=== PATIENT | male | born 1940 | race Caucasian/White ===

== ENCOUNTER 2016-09-12 10:48 | Emergency (ER) | payer MEDICARE, BC ==
--- NOTE | ~2016-09-12 | CR211 ---
[facility] A Service of [facility] RADIOLOGY TEXT RESULTS PATIENT: JUAN DIEGO MARMOLEJO LOCATION: SED : 39 UNIT #: [id number] AGE: [address]: Sebastien Monahan MD SEX: M ORDER DR: [id number] [place] [id number] E MR#: [id number] Acc #: [id number] NAME: JUAN DIEGO MARMOLEJO : 1940 SEX: M STUDY DATE/TIME: 09/12/2016 10:57 UNIT: SED ROOM: STUDY DESCRIPTION: CR Ribs Uni 2 View W PA Ch Rt Attending Physician: Sebastien Monahan M.D. Ordering Physician: Sebastien Monahan M.D. Primary Care Physician: Mirza Ellis D.O. MEDICAL IMAGING REPORT This report is preliminary unless electronic signature is present. EXAM Chest with right rib series 09/12/2016 at 10:57 hours HISTORY Patient fell today, right rib pain. COMPARISON Chest x-ray 04/01/2012 FINDINGS The upright view of the chest demonstrates low lung volumes. There is a right central venous port catheter with tip at the junction of SVC and right atrium. There is mild atelectasis at the right base unchanged. There is no pleural effusion or pneumothorax. AP and oblique views of the right ribs demonstrate mild bowing deformity of the anterior sixth rib which could be related to incomplete fracture or old healed fracture. IMPRESSION 1. Stable right central venous port catheter. 2. Mild atelectasis at the right base. There is no pleural effusion or pneumothorax. 3. Rib detail films demonstrate mild bowing deformity of the far anterior right sixth rib which could be related to old healed fracture or perhaps nondisplaced acute fracture. There is no pneumothorax. Dictated by... Kayleen Ordonez M.D. [facility] A Service of [facility] RADIOLOGY TEXT RESULTS PATIENT: JUAN DIEGO MARMOLEJO LOCATION: SED : 39 UNIT #: [id number] AGE: [address]: Sebastien Monahan MD SEX: M ORDER DR: THIS IS AN ELECTRONICALLY VERIFIED REPORT Kayleen Ordonez M.D. at 09/12/2016 2:30 PM GABY/johnathon TD: 09/12/2016 12:39 JOB #: [id number] MEDICAL IMAGING REPORT Page 1 of 1
--- NOTE | ~2016-09-12 | CT71 ---
[facility] A Service of [facility] RADIOLOGY TEXT RESULTS PATIENT: JUAN DIEGO MARMOLEJO LOCATION: SED : 39 UNIT #: [id number] AGE: [address]: Sebastien Monahan MD SEX: M ORDER DR: [id number] [place] [id number] E MR#: [id number] Acc #: [id number] NAME: JUAN DIEGO MARMOLEJO. : 1940 SEX: M STUDY DATE/TIME: 09/12/2016 10:54 UNIT: SED ROOM: STUDY DESCRIPTION: CT Head Wo Contrast Attending Physician: Sebastien Monahan M.D. Ordering Physician: Sebastien Monahan M.D. Primary Care Physician: Mirza Ellis D.O. MEDICAL IMAGING REPORT This report is preliminary unless electronic signature is present. EXAM CT of the head without contrast INDICATION Fell backwards and hit head on garage floor. This occurred September 07, 2016. Patient now has a large, painful hematoma along the right-sided posterior head. This patient is on blood thinners. TECHNIQUE Axial CT images were obtained from the vertex of the skull through the skull base. No intravenous contrast was administered. This CT examination was performed with one or more of the following radiation dose reduction techniques: automatic exposure control, adjustment of mA and/or kV according to patient size, and iterative reconstruction. FINDINGS This patient has a large right parieto-occipital soft tissue hematoma measuring up to 5.6 x 2.2 cm. No underlying calvarial fracture is identified and I do not see any intracranial hemorrhage. There is diffuse cerebral atrophy with compensatory ventricular dilatation which is keeping with the age of 76. There is no midline shift or mass effect. I do not see any definite focal areas of decreased attenuation. Visualized paranasal sinuses and mastoid air cells appear clear. IMPRESSION Patient has a large right parieto-occipital soft tissue hematoma measuring up 5.6 x 2.2 cm without underlying calvarial fracture. No acute intracranial hemorrhage is seen. Dictated by... [facility] A Service of [facility] RADIOLOGY TEXT RESULTS PATIENT: JUAN DIEGO MARMOLEJO [id number] : 38 UNIT #: [id number] AGE: [address]: Sebastien Monahan MD SEX: M ORDER DR: Alivia Barajas M.D. THIS IS AN ELECTRONICALLY VERIFIED REPORT Alivia Barajas M.D. at 09/12/2016 6:55 PM AFF/emory TD: 09/12/2016 13:07 JOB #: [id number] MEDICAL IMAGING REPORT Page 1 of 1
--- NOTE | ~2016-09-12 | CR219 ---
[facility] A Service of [facility] & [facility] RADIOLOGY TEXT RESULTS PATIENT: JUAN DIEGO MARMOLEJO LOCATION: SED : 39 UNIT #: [id number] AGE: [address]: Sebastien Monahan MD SEX: M ORDER DR: [id number] [place] [id number] E MR#: [id number] Acc #: [id number] NAME: JUAN DIEGO MARMOLEJO. : 1940 SEX: M STUDY DATE/TIME: 09/12/2016 10:57 UNIT: SED ROOM: STUDY DESCRIPTION: CR Sacrum and Coccyx Min 2 Vie Attending Physician: Sebastien Monahan M.D. Ordering Physician: Sebastien Monahan M.D. Primary Care Physician: Mirza Ellis D.O. MEDICAL IMAGING REPORT This report is preliminary unless electronic signature is present. EXAM Sacrum and coccyx 2 views 09/12/2016 1057 hours HISTORY Patient fell today with sacral pain. COMPARISON None. FINDINGS 2 AP views of the sacrum and coccyx and a lateral view were performed. There is mild spurring at the sacroiliac joints. There is no sacral or coccygeal fracture. Mild sclerotic degenerative change at the pubic symphysis. IMPRESSION No fracture of the sacrum or coccyx. Degenerative changes are present. Dictated by... Kayleen Ordonez M.D. THIS IS AN ELECTRONICALLY VERIFIED REPORT Kayleen Ordonez M.D. at 09/12/2016 2:30 PM GABY/emory TD: 09/12/2016 12:50 JOB #: [id number] MEDICAL IMAGING REPORT Page 1 of 1
--- NOTE | ~2016-09-12 | CR206 ---
[facility] A Service of [facility] & [facility] RADIOLOGY TEXT RESULTS PATIENT: JUAN DIEGO MARMOLEJO LOCATION: SED : 39 UNIT #: [id number] AGE: [address]: Sebastien Monahan MD SEX: M ORDER DR: [id number] [place] [id number] E MR#: [id number] Acc #: [id number] NAME: JUAN DIEGO MARMOLEJO : 1940 SEX: M STUDY DATE/TIME: 09/12/2016 UNIT: SED ROOM: STUDY DESCRIPTION: CR Pelvis 1 or 2 Views Attending Physician: Sebastien Monahan M.D. Ordering Physician: Sebastien Monahan M.D. Primary Care Physician: Mirza Ellis D.O. MEDICAL IMAGING REPORT This report is preliminary unless electronic signature is present. EXAM Pelvis one-view 09/12/2016 at 10:57 hours HISTORY Patient fell today, pelvic and hip pain. COMPARISON None. FINDINGS Single view of the pelvis demonstrates no fracture or dislocation. There is mild degenerative change at the hip joints and sacroiliac joints. IMPRESSION No pelvic or hip fracture seen. Dictated by... Kayleen Ordonez M.D. THIS IS AN ELECTRONICALLY VERIFIED REPORT Kayleen Ordonez M.D. at 09/12/2016 2:30 PM GABY/johnathon TD: 09/12/2016 12:38 JOB #: [id number] MEDICAL IMAGING REPORT Page 1 of 1
[~2016-09-12 10:48] MED LIST: AMBIEN PO; ASPIRIN EC81 M1 PO; ASPIRIN PO; ASPIRIN81 M1 PO; CENTRUM PO; CENTRUM SILVER PO; FENOFIBRATE145 M1 PO; FEOSOL PO; FUROSEMIDE40 MG PO; GLUCOPHAGE500 M1 PO; GLUCOPHAGE500 MG PO; IMDUR PO; ISOSORBIDE DINI30 MG PO; K-DUR20 ME1 PO; KCL PO; KLOR-CON PO; LANOXIN PO; LASIX PO; LIPITOR PO; LIPITOR20 MG PO; LOVAZA1 G PO; MAGNESIUM400 MG PO; METOPROLOL SUCC50 MG PO; MULTI VITAMIN1 EACH PO; NITROGLYCERIN0.4 MG SL; PLAVIX PO; STOOL SOFTENER240 MG; TIKOSYN250 MCG PO; TOPROL XL PO; TOPROL XL50 MG PO; TRICOR145 MG PO; XARELTO15 MG PO
[2016-09-12 10:54] LABS: BASOPHIL% 1.3 % (0-2.5); EOSINOPHIL# 0.1 X10e3 (0-0.7); EOSINOPHIL% 3.2 % (0.0-7.0); HEMATOCRIT 34.8 % (38.0-50.0); HEMOGLOBIN 11.6 gm/dL (13.0-16.0); LYMPHOCYTE# 0.3 X10e3 (1.0-3.5); LYMPHOCYTE% 9.9 % (17.0-45.0); MEAN CELL VOLUME 102.2 FL (83-96); MEAN CORPUSCULAR HEMOGLOBIN 34.2 PG (28-34); MEAN CORPUSCULAR HGB CONC 33.4 g/dL (30-36); MEAN PLATELET VOLUME 7.2 FL (6.5-11.5); MONOCYTE# 0.2 X10e3 (0-1.0); MONOCYTE% 6.9 % (3.0-12.0); NEUTROPHIL# 2.7 X10e3 (1.5-7.1); NEUTROPHIL% 78.7 % (40-75); PLATELET COUNT 227 X10e3 (140-420); RED BLOOD COUNT 3.41 X10e (3.90-5.60); RED CELL DISTRIBUTION WIDTH 13.7 % (11.0-15.5); WHITE BLOOD COUNT 3.4 X10e3 (4.0-10.5)
[2016-09-12 11:04] LABS: DIFF IND NO
[2016-09-12 11:09] LABS: INR 2.3
[2016-09-12 11:16] LABS: BUN/CREATININE RATIO 22.72; CREATININE SERUM 1.1 mg/dL (0.6-1.4); GLOM FILT RATE Estimated 64.4 mL/min (>60); PARTIAL THROMBOPLASTIN TIME 40.6 SECONDS (25.6-38.1)
== END 2016-09-12 12:43 | disposition home or self-care (01) ==
LOC: SED 10:48
PROVIDERS: Emergency Medicine
DX: S09.90XA Unspecified injury of head, initial encounter (principal); S00.03XA Contusion of scalp, initial encounter; I21.3 ST elevation (STEMI) myocardial infarction of unspecified site; I48.91 Unspecified atrial fibrillation; E11.9 Type 2 diabetes mellitus without complications; I10 Essential (primary) hypertension; W01.0XXA Fall on same level from slipping, tripping and stumbling without subsequent striking against object, initial encounter; Y92.009 Unspecified place in unspecified non-institutional (private) residence as the place of occurrence of the external cause
CPT/HCPCS: 36415; 70450; 71101; 72170; 72220; 80048; 85025; 85610; 85730; 99284